=== PATIENT | male | born 1995 | race African-American/Black ===

== ENCOUNTER 2019-11-26 12:28 | Emergency (ER) | payer SELFPAY ==
[2019-11-26] MEDS ORDERED: Lidocaine 2% 10 ML INJ ONE (13:52)
[2019-11-26] MEDS ORDERED: Ibuprofen 800 MG TAB ONE (14:23)
== END 2019-11-26 14:27 | disposition home or self-care (01) ==
LOC: ERS 12:28
DX: L02.214 Cutaneous abscess of groin (principal); L03.314 Cellulitis of groin; F17.210 Nicotine dependence, cigarettes, uncomplicated
CPT/HCPCS: 10061; J2001